=== PATIENT | female | born 2000 | race Caucasian/White ===

== ENCOUNTER 2019-12-23 12:49 | Outpatient (CLI) | payer BC, SELFPAY ==
--- NOTE | ~2019-12-23 | US_ITS ---
EXAMINATION: US renal BI EXAM DATE: 12/23/2019 13:29 INDICATION: Right ureter stone. TECHNIQUE: Multiple grayscale and Doppler images of the kidneys were obtained (by a technologist who performed the scan) and subsequently reviewed. There is no prior study for comparison. FINDINGS: Right kidney: There is normal contour and echogenicity. It measures 12.2 x 5.0 x 4.3 centimeters. T here are no focal renal lesions identified. There is no hydronephrosis. Left kidney: There is normal contour and echogenicity. It measures 12.1 x 8.0 x 5.7 centimeters. Th ere are no focal renal lesions identified. There is no hydronephrosis. Bladder unremarkable. IMPRESSION: Sonographically unremarkable kidneys. Reviewed, dictated and finalized at location A.
== END 2019-12-23 12:50 | disposition home or self-care (01) ==
DX: N20.1 Calculus of ureter (principal)
CPT/HCPCS: 76775

== ENCOUNTER → 2020-01-07 10:28 | Outpatient (CLI) | payer BC, SELFPAY ==
--- NOTE | ~2020-01-07 | CT_ITS ---
EXAMINATION: CT pelvis wo con DATE: 01/07/2020 10:40 INDICATION: Right ureteral stone TECHNIQUE: Computed tomography (CT) of the pelvis was performed without intravenous contrast. The dos e-length product (DLP) was 585.31 mGy-cm. Automated exposure control and iterative reconstruction osbaldo hnique were employed. COMPARISON: None FINDINGS: The urinary tract is evaluated from the level of the mid ureters or bladder. No urolithiasi s is identified. There is no hydroureter. There are no pathologically enlarged pelvic lymph nodes. Th ere is no free intraperitoneal gas or evidence of bowel obstruction. An IUD is present in the uterus in expected position. The appendix is normal. IMPRESSION: 1. No urolithiasis identified from the mid ureters to the bladder. No hydroureter. Reviewed, dictated and finalized at location A. IMPRESSION: 1. No urolithiasis identified from the mid ureters to the bladder. No hydrouret er.
== END ==
DX: N20.1 Calculus of ureter (principal)
CPT/HCPCS: 72192